=== PATIENT | male | born 2000 | race Caucasian/White ===

== ENCOUNTER 2024-05-07 10:30 | Emergency (ER) | payer OTHER ==
[~2024-05-07] VITALS: Ht 172.7 cm; Wt 83.9 kg
[2024-05-07 10:49] VITALS: BP 119/83; TEMP 98.1; O2SAT 100
[2024-05-07] MEDS ORDERED: AMOX-430 PO (11:35)
[2024-05-07] MEDS ORDERED: IBUP-1953 PO (11:35)
== END 2024-05-07 11:40 | disposition home or self-care (01) ==
LOC: ER 10:48
DX: J32.9 Chronic sinusitis, unspecified (principal); F14.10 Cocaine abuse, uncomplicated; I10 Essential (primary) hypertension